=== PATIENT | male | born 1950 | race Caucasian/White ===

== ENCOUNTER 2023-03-13 12:11 | Emergency (ER) | payer OTHER, MEDICAID ==
[~2023-03-13] VITALS: Ht 180.3 cm; Wt 80.0 kg
[2023-03-13 12:15] VITALS: BP 148/96; PULSE 76; RESP 18; TEMP 97.8; O2SAT 98
[2023-03-13] MEDS ORDERED: LIDOcaine 1% W/epiNEPHrine 1:100,000 20ml vial SQ ONE (14:05)
[2023-03-13] MEDS ORDERED: TETanus/Pertussis (Acell)/Diphther VAC/PF (Tdap-Adult) 0.5ml syringe IMVAC ONE (14:05)
[2023-03-13] MEDS ORDERED: bacitracin 15gm ointment TP ONE (14:05)
[2023-03-13] MEDS ORDERED: LIDOCAINE 1%/EPI 1:100,000 inj. 10 ML multi-dose vial SQ ONE (14:10)
--- NOTE | 2023-03-13 15:47 | NUR ---
HEALTH DATA ANALYST ASSESSMENT REVIEWED BY TRINIDAD RN, APPROVED
== END 2023-03-13 17:41 | disposition home or self-care (01) ==
LOC: ER 12:12
DX: S61.317A Laceration without foreign body of left little finger with damage to nail, initial encounter (principal); Z88.1 Allergy status to other antibiotic agents; Z87.891 Personal history of nicotine dependence; X58.XXXA Exposure to other specified factors, initial encounter; Y93.89 Activity, other specified; Y92.89 Other specified places as the place of occurrence of the external cause; Y99.8 Other external cause status
CPT/HCPCS: 11760; 73140; 90471; 90715; 99285; A6222; A6258